=== PATIENT | male | born 1970 | race Two or more races ===

== ENCOUNTER → 2016-07-19 | Outpatient (REF) | payer OTHER ==
[2016-07-19 12:52] LABS: ALBUMIN 3.8 GM/DL (3.2-5.2); ALBUMIN/GLOBULIN RATIO 1.09 (1.00-1.93); ALKALINE PHOSPHATASE 58 U/L (45-117); ALT/SGPT 41 U/L (12-78); ANION GAP 5 MEQ/L (8-16); AST/SGOT 17 U/L (15-37); BILIRUBIN,TOTAL 0.4 MG/DL (0.2-1.0); BLOOD UREA NITROGEN 15 MG/DL (7-18); CALCIUM LEVEL 9.1 MG/DL (8.5-10.1); CARBON DIOXIDE LEVEL 29 MEQ/L (21-32); CHLORIDE LEVEL 107 MEQ/L (98-107); CHOLESTEROL LEVEL 180 MG/DL (<200); CREATININE FOR GFR 1.08 MG/DL (0.70-1.30); GLOMERULAR FILTRATION RATE > 60.0 (>60); GLUCOSE, FASTING 97 MG/DL (70-105); POTASSIUM SERUM 4.6 MEQ/L (3.5-5.1); SODIUM LEVEL 141 MEQ/L (136-145); TOTAL PROTEIN 7.3 GM/DL (6.4-8.2); TRIGLYCERIDES LEVEL 127 MG/DL (<150)
== END ==
LOC: M SFHCCLAY 08:02
PROVIDERS: ATTEND Family Medicine
DX: Z13.220 Encounter for screening for lipoid disorders (principal)

== ENCOUNTER → 2016-08-30 | Outpatient (CLI) | payer OTHER ==
--- NOTE | 2016-08-30 09:27 | REP ---
Clinical: Cough. Technique: PA and lateral. Comparison: Report dated 06/14/2016. Findings: Cystic changes emanating from the bilateral kacie to the upper and lower lobes are identified and suggest advanced bronchiectasis versus underlying cystic fibrosis. Increased bibasilar markings suggest acute versus chronic fibroatelectatic changes. Calcified hilar lymph nodes are identified. No effusion. No pneumothorax. Cardiac silhouette is normal. Skeletal structures intact. Impression: Findings described above suggest underlying advanced bronchiectasis and/or cystic fibrosis. Superimposed basilar atelectasis (left greater than right) cannot be excluded. Chest CT may be warranted for further investigation.
== END ==
LOC: M CLY 08:51
PROVIDERS: ATTEND Family Medicine
DX: R05 Cough (principal)

== ENCOUNTER → 2016-08-30 | Outpatient (REF) | payer OTHER ==
[2016-08-30 11:57] LABS: BASO % 0.3 % (0.0-1.0); EOS # 0.2 K/mm3 (0.0-0.50); EOS % 1.2 % (0.0-3.0); LARGE UNSTAINED CELL # 0.1 K/mm3 (0.0-0.4); LARGE UNSTAINED CELL % 1.1 % (0.0-4.0); LYMPH # 2.1 K/mm3 (1.5-4.5); LYMPH % 15.4 % (24.0-44.0); MEAN CORPUSCULAR HEMOGLOBIN 30.1 pg (27.0-33.0); MEAN CORPUSCULAR VOLUME 88.4 fl (80.0-96.0); MONO # 0.8 K/mm3 (0.0-0.8); MONO % 6.1 % (0.0-5.0); NEUTROPHILS # 9.7 K/mm3 (1.8-7.7); PLATELET COUNT, AUTOMATED 274 k/mm3 (150-450); RED CELL DISTRIBUTION WIDTH 12.8 % (11.5-14.5); WHITE BLOOD COUNT 12.7 K/mm3 (4.0-10.0)
[2016-08-30 12:35] LABS: ANION GAP 6 MEQ/L (8-16); BLOOD UREA NITROGEN 10 MG/DL (7-18); CALCIUM LEVEL 8.4 MG/DL (8.5-10.1); CARBON DIOXIDE LEVEL 31 MEQ/L (21-32); CHLORIDE LEVEL 103 MEQ/L (98-107); CREATININE FOR GFR 1.07 MG/DL (0.70-1.30); GLOMERULAR FILTRATION RATE > 60.0 (>60); GLUCOSE, FASTING 98 MG/DL (70-105); POTASSIUM SERUM 4.1 MEQ/L (3.5-5.1); SODIUM LEVEL 140 MEQ/L (136-145)
== END ==
LOC: M SFHCCLAY 08:45
PROVIDERS: ATTEND Family Medicine
DX: R05 Cough (principal)

== ENCOUNTER → 2016-09-06 | Outpatient (CLI) | payer OTHER ==
--- NOTE | 2016-09-06 10:34 | REP ---
Clinical: Abnormal chest x-ray. Findings: The bilateral lung zavala demonstrate significant only oligemia and marked bronchiectasis primarily involving the bilateral upper lobes and lower lobes and less pronounced in the right middle lobe. Mediastinal and hilar adenopathy is appreciated with scattered calcified lymph nodes as well as a calcified granuloma in the right lower lobe (Ranke complex) and findings may all be related to prior granulomatous disease. No pulmonary parenchymal consolidation, significant nodule or mass lesion is appreciated. No pleural effusion/reaction or pneumothorax. Thoracic aorta and heart/pericardium are normal. Surrounding musculoskeletal structures are intact. Impression: 1. Diffuse marked oligemia and bronchiectasis along with calcified lymph nodes and right lower lobe granuloma likely reflects prior granulomatous disease and correlation as well as consultation with Pulmonology is recommended. 2. No acute active mediastinal or pleuroparenchymal process appreciated. Signed by Artie Hewitt MD 09/06/2016 10:25 A
== END ==
LOC: M RAD 06:56
PROVIDERS: ATTEND Family Medicine
DX: R93.8 Abnormal findings on diagnostic imaging of other specified body structures (principal)

== ENCOUNTER → 2016-10-04 | Outpatient (REF) | payer OTHER ==
[2016-10-04 18:32] LABS: IMMUNOGLOBULIN G 1300 MG/DL (681-1648); IMMUNOGLOBULIN M 36.8 MG/DL (40-230)
[2016-10-04 18:35] LABS: IMMUNOGLOBULIN E < 3.6 IU/ML (<100)
[2016-10-09 08:08] LABS: E001-IgE Cat Epith/Dander < 0.10 kU/L (Class 0); E005-IgE Dog Dander < 0.10 kU/L (Class 0); G002-IgE Bermuda Grass < 0.10 kU/L (Class 0); G008-IgE Kentucky Bluegrass < 0.10 kU/L (Class 0); M001-IgE Penicillium chrysogen < 0.10 kU/L (Class 0); M002 IgE Cladosporium herbaru < 0.10 kU/L (Class 0); M003 IgE Aspergillus fumigatu < 0.10 kU/L (Class 0); M006-IgE Alternaria alternata < 0.10 kU/L (Class 0); SJOGREN'S ANTI SS-A 0.3 AI (0.0-0.9); SJOGREN'S ANTI SS-B <0.2 AI (0.0-0.9); T001-IgE Maple/Box Elder < 0.10 kU/L (Class 0); T003-IgE Common Silver Birch < 0.10 kU/L (Class 0); T007-IgE Oak, White < 0.10 kU/L (Class 0); T008-IgE Elm, American < 0.10 kU/L (Class 0); T015-IgE Ash, White < 0.10 kU/L (Class 0); T041-IgE Hickory, White < 0.10 kU/L (Class 0); W001-IgE Ragweed, Short < 0.10 kU/L (Class 0); W009-IgE Plantain, English < 0.10 kU/L (Class 0); W014-IgE Pigweed, Rough < 0.10 kU/L (Class 0); W018-IgE Sheep Sorrel < 0.10 kU/L (Class 0)
== END ==
LOC: M LAB REF 16:57
PROVIDERS: ATTEND Internal Medicine Pulmonary Disease
DX: J47.9 Bronchiectasis, uncomplicated (principal)

== ENCOUNTER → 2016-10-10 | Outpatient (CLI) | payer OTHER ==
[2016-10-10 12:47] LABS: SWEAT TEST LFT ARM 29.6 MEQ CL/L (0.0-40.0); SWEAT TEST RT ARM 29.6 MEQ CL/L (0.0-40.0); WEIGHT OF SWEAT LFT ARM 78.3 MG; WEIGHT OF SWEAT RT ARM 77.4 MG
== END ==
LOC: M LAB 09:48
PROVIDERS: ATTEND Internal Medicine Pulmonary Disease
DX: R05 Cough (principal); J47.9 Bronchiectasis, uncomplicated